=== PATIENT | female | born 1995 | race Caucasian/White ===

== ENCOUNTER 2016-07-24 17:15 | Emergency (ER) | payer MEDICAID, OTHER ==
[2016-07-24] MEDS ORDERED: Ibuprofen 200 MG TAB ONE (18:17)
== END 2016-07-24 19:14 | disposition home or self-care (01) ==
LOC: ER 17:15
DX: S16.1XXA Strain of muscle, fascia and tendon at neck level, initial encounter (principal); V47.0XXA Car driver injured in collision with fixed or stationary object in nontraffic accident, initial encounter; S39.012A Strain of muscle, fascia and tendon of lower back, initial encounter; S20.219A Contusion of unspecified front wall of thorax, initial encounter
CPT/HCPCS: 71020; 72050; 72100